=== PATIENT | female | born 1985 | race Two or more races ===

== ENCOUNTER 2024-03-01 19:49 | Emergency (ER) | payer MEDICAID, OTHER ==
[~2024-03-01] VITALS: Ht 167.6 cm; Wt 111.5 kg
[~2024-03-01 19:49] MED LIST: NO HOME MEDS
[2024-03-01 19:50] VITALS: BP 156/98; PULSE 82; RESP 18; O2SAT 97
[2024-03-01] MEDS ORDERED: FAMO-129 PO (20:30)
[2024-03-01] MEDS ORDERED: PRED20TA PO (20:30)
[2024-03-01] MEDS: dexamethasone sod phosphate 10mg/ml inj IM STA (20:34)
[2024-03-01] MEDS: famotidine 20mg tablet PO ONE (20:36)
[2024-03-01] MEDS: diphenhydrAMINE 50 mg/ml inj IM ONE (20:37)
[2024-03-01 20:42] VITALS: TEMP 98.7
== END 2024-03-01 20:45 | disposition home or self-care (01) ==
LOC: ER 19:50
DX: T78.49XA Other allergy, initial encounter (principal); X58.XXXA Exposure to other specified factors, initial encounter
CPT/HCPCS: 96372; 99283; J1200